=== PATIENT | female | born 1955 | race Caucasian/White ===

== ENCOUNTER 2017-06-20 10:53 | Day surgery (SDC) | payer BC ==
[2017-06-20] MEDS: MOXIFLOXACIN IN BSS 0.25MG/0.25ML INTRACAMERAL INJ (OR EYE ONLY)(J2280) As Ordered (06:48)
[~2017-06-20 10:53] MED LIST: ACETAMINOPHEN 325 MG TAB PO; PHENYLEPHRINE HCL 10 % OPHTH. SOL 5ML XX
[2017-06-20] MEDS ORDERED: TROPICAMIDE 1% OPHTH SOLN 2ML As Ordered (11:08)
[2017-06-20] MEDS ORDERED: PHENYLEPHRINE 2.5% OPHTH SOL 2ML As Ordered (11:08)
[2017-06-20] MEDS ORDERED: CYCLOPENTOLATE 2% OPHTH SOLN 2ML BTL As Ordered (11:08)
[2017-06-20] MEDS ORDERED: OFLOXACIN 0.3 % (OCUFLOX) OPTH SOL 5ML As Ordered (11:08)
[2017-06-20] MEDS ORDERED: LR 1,000 ML IV (11:15)
[2017-06-20] MEDS: TROPICAMIDE 1% OPHTH SOLN 2ML OS (11:28)
[2017-06-20] MEDS: LIDOCAINE 3.5 % 1ML OPHTH TOPICAL GEL OU (11:28)
[2017-06-20] MEDS: CYCLOPENTOLATE 2% OPHTH SOLN 2ML BTL OS (11:28)
[2017-06-20] MEDS: PHENYLEPHRINE 2.5% OPHTH SOL 2ML OS (11:28)
[2017-06-20] MEDS ORDERED: MIDAZOLAM INJ 2 MG/2 ML VIAL (J2250) As Ordered (11:49)
[2017-06-20] MEDS ORDERED: fentaNYL 100 MCG/2 ML INJECTION (J3010) As Ordered (11:49)
[2017-06-20] MEDS: POVIDONE-IODINE 5% OPHTH PREP SOL 30ML As Ordered (12:22)
[2017-06-20] MEDS: LIDOCAINE 1% SDV 5 ML VIAL As Ordered (12:24)
[2017-06-20] MEDS: HEALON DUET (HEALON 10MG/ML 0.55ML & HEALON ENDOCOAT 30MG/ML 0.85ML) As Ordered (12:24)
[2017-06-20] MEDS: TRIAMCINOLONE PRES FR 40 MG/ML 1ML(TRIESENCE)(OR EYE ONLY)(J3300 PER 1MG) As Ordered (12:25)
[2017-06-20] MEDS: BSS with VANC/TOB/EPI for EYE CASES IR (12:25)
[2017-06-20] MEDS: CEFUROXIME 1MG/0.1ML INTRACAMERAL INJ As Ordered (12:25)
[2017-06-20] MEDS: AcetaZOLAMIDE 500 MG ER CAP PO (12:45)
[2017-06-20] MEDS: PROPARACAINE 0.5% OPHTH SOL 15ML OS (12:45)
[2017-06-20] MEDS ORDERED: TRIMETHOBENZAMIDE 300 MG CAP PO (12:45)
[2017-06-20] MEDS: KETOROLAC 0.5% OPHTH SOLN OS (12:50)
[2017-06-20] MEDS ORDERED: PROPOFOL 200 MG/20 ML VIAL As Ordered (13:46)
== END 2017-06-20 13:25 | disposition home or self-care (01) ==
LOC: M SDC 10:53
DX: H26.9 Unspecified cataract (principal); I10 Essential (primary) hypertension; R29.898 Other symptoms and signs involving the musculoskeletal system; M06.9 Rheumatoid arthritis, unspecified; M15.0 Primary generalized (osteo)arthritis; M35.00 Sjogren syndrome, unspecified; R06.83 Snoring; G47.33 Obstructive sleep apnea (adult) (pediatric); Z88.8 Allergy status to other drugs, medicaments and biological substances; Z79.899 Other long term (current) drug therapy; Z79.01 Long term (current) use of anticoagulants; Z86.711 Personal history of pulmonary embolism; Z87.440 Personal history of urinary (tract) infections; Z86.718 Personal history of other venous thrombosis and embolism; Z90.710 Acquired absence of both cervix and uterus
CPT/HCPCS: 66984

== ENCOUNTER 2017-08-07 06:26 | Day surgery (SDC) | payer BC ==
[~2017-08-07 06:26] MED LIST changes: -PHENYLEPHRINE HCL 10 % OPHTH. SOL 5ML XX
[2017-08-07] MEDS: MOXIFLOXACIN IN BSS 0.25MG/0.25ML INTRACAMERAL INJ (OR EYE ONLY)(J2280) As Ordered (06:28)
[2017-08-07] MEDS ORDERED: SLF 3 ML SYR IV ×2 (06:45→14:00)
[2017-08-07] MEDS ORDERED: PHENYLEPHRINE HCL 10 % OPHTH. SOL 5ML OD (07:00)
[2017-08-07] MEDS ORDERED: OFLOXACIN 0.3 % (OCUFLOX) OPTH SOL 5ML OD (07:00)
[2017-08-07] MEDS ORDERED: PROPARACAINE 0.5% OPHTH SOL 15ML OD (07:01)
[2017-08-07] MEDS: TROPICAMIDE 1% OPHTH SOLN 2ML OD (07:28)
[2017-08-07] MEDS: PHENYLEPHRINE 2.5% OPHTH SOL 2ML OD (07:28)
[2017-08-07] MEDS: LIDOCAINE 3.5 % 1ML OPHTH TOPICAL GEL OU (07:28)
[2017-08-07] MEDS: CYCLOPENTOLATE 2% OPHTH SOLN 2ML BTL OD (07:28)
[2017-08-07] MEDS ORDERED: MIDAZOLAM INJ 2 MG/2 ML VIAL (J2250) As Ordered (07:55)
[2017-08-07] MEDS ORDERED: fentaNYL 100 MCG/2 ML INJECTION (J3010) As Ordered (07:55)
[2017-08-07] MEDS: TRIAMCINOLONE PRES FR 40 MG/ML 1ML(TRIESENCE)(OR EYE ONLY)(J3300 PER 1MG) As Ordered (08:02)
[2017-08-07] MEDS: HEALON DUET (HEALON 10MG/ML 0.55ML & HEALON ENDOCOAT 30MG/ML 0.85ML) As Ordered (08:03)
[2017-08-07] MEDS: CEFUROXIME 1MG/0.1ML INTRACAMERAL INJ As Ordered (08:03)
[2017-08-07] MEDS: LIDOCAINE 1% SDV 5 ML VIAL As Ordered (08:03)
[2017-08-07] MEDS: LIDOCAINE 2% W/EPIN INJ 20ML **PRES FREE As Ordered (08:03)
[2017-08-07] MEDS: POVIDONE-IODINE 5% OPHTH PREP SOL 30ML As Ordered (08:03)
[2017-08-07] MEDS: BSS with VANC/TOB/EPI for EYE CASES IR (08:03)
[2017-08-07] MEDS ORDERED: TRIMETHOBENZAMIDE 300 MG CAP PO (08:45)
[2017-08-07] MEDS: AcetaZOLAMIDE 500 MG ER CAP PO (08:45)
[2017-08-07] MEDS ORDERED: KETOROLAC 0.5% OPHTH SOLN OD (08:45)
== END 2017-08-07 09:05 | disposition home or self-care (01) ==
LOC: M SDC 06:26
DX: H25.9 Unspecified age-related cataract (principal); I10 Essential (primary) hypertension; G47.30 Sleep apnea, unspecified; Z86.711 Personal history of pulmonary embolism; Z79.01 Long term (current) use of anticoagulants; Z79.899 Other long term (current) drug therapy
CPT/HCPCS: 66984

== ENCOUNTER → 2022-06-28 | Outpatient (CLI) | payer MEDICARE ==
[~2022-06-28] MED LIST changes: +ACET-907 PO; -ACETAMINOPHEN 325 MG TAB PO; +AVAP150T31 PO; +AVAP300T23 PO; +BISO5TAB14; +CALC600T31 PO; +CLON-412 PO; +CRANPOW2 PO; +DILT180C28; +DYAZ37.5 PO; +HYDR200T3 PO; +MACR50CA10 PO; +METO50TA7 PO; +MULT1TAB10 PO; +OMEP1CAP73 PO; +OREN250I2 IV; +POTA-149 PO; +SULF500T2 PO; +TRAM50TA2 PO; +TRIA37.577; +TYLE500T78 PO; +VITA10006 PO; +coumadin PO
== END ==
LOC: M LABSMTC 11:11
PROVIDERS: ATTEND Anesthesiology
DX: Z01.812 Encounter for preprocedural laboratory examination (principal); Z11.52 Encounter for screening for COVID-19

== ENCOUNTER 2022-07-01 08:29 | Day surgery (SDC) | payer MEDICARE ==
[~2022-07-01] VITALS: Ht 149.9 cm; Wt 152.0 kg
[~2022-07-01 08:29] MED LIST changes: +NS 1,000 ML IV ONE
[2022-07-01 11:00] VITALS: BP 117/70
== END 2022-07-01 11:15 | disposition home or self-care (01) ==
LOC: M OPP 08:29
PROVIDERS: ATTEND Internal Medicine Gastroenterology
DX: Z12.11 Encounter for screening for malignant neoplasm of colon (principal); Z86.010 Personal history of colon polyps; K64.8 Other hemorrhoids; K57.30 Diverticulosis of large intestine without perforation or abscess without bleeding; I48.91 Unspecified atrial fibrillation; I10 Essential (primary) hypertension; G47.33 Obstructive sleep apnea (adult) (pediatric); M35.00 Sjogren syndrome, unspecified; Z79.2 Long term (current) use of antibiotics; Z79.899 Other long term (current) drug therapy; Z99.89 Dependence on other enabling machines and devices; Z90.09 Acquired absence of other part of head and neck; Z86.711 Personal history of pulmonary embolism; Z86.718 Personal history of other venous thrombosis and embolism; Z87.440 Personal history of urinary (tract) infections; Z80.3 Family history of malignant neoplasm of breast; Z80.42 Family history of malignant neoplasm of prostate